=== PATIENT | female | born 1955 | race Caucasian/White ===

== ENCOUNTER 2020-08-18 07:47 | Day surgery (SDC) | payer BC, MEDICARE ==
[2020-08-18] MEDS: Polymyxin B/Trimethoprim 10 ML Bottle EYELF SCH ×3 (07:54→09:43)
[2020-08-18] MEDS: Brimonidine 0.2% Ophth Soln 5 ML Bottle EYELF SCH ×4 (07:57→09:43)
[2020-08-18] MEDS: Phenylephrine 2.5% Ophth Soln 2 ML Bot EYELF SCH ×6 (08:01→09:26)
[2020-08-18] MEDS: Tropicamide 1% Ophth Soln 15 ML Bottle EYELF SCH ×4 (08:06→08:50)
--- NOTE | 2020-08-18 08:07 | PCM.PREANE ---
Preanesthetic Assessment - Procedure Proposed Procedure: Left IOL - Anesthesia/Transfusion/Family Hx Anesthesia History: Prior Anesthesia Without Reaction Family History of Anesthesia Reaction: No - Review of Systems General: No Symptoms Pulmonary: No Symptoms Cardiovascular: No Symptoms Gastrointestinal: No Symptoms Neurological: No Symptoms Other: Reports: None - Physical Assessment NPO Status Date: 08/18/20 (greater than 8 hours) Height: 5 ft 5 in Weight: 81.647 kg ASA Class: 2 Mental Status: Alert & Oriented x3 Airway Class: Mallampati = 2 Dentition: Reports: Normal Dentition ROM/Head Extension: Full Lungs: Clear to Auscultation, Normal Respiratory Effort Cardiovascular: Regular Rate, Regular Rhythm - Allergies Allergies/Adverse Reactions: Allergies Allergy/AdvReac Type Severity Reaction Status Date / Time No Known Allergies Allergy Verified 08/17/20 09:31 - Acknowledgements Anesthesia Type Planned: MAC Pt an Appropriate Candidate for the Planned Anesthesia: Yes Alternatives and Risks of Anesthesia Discussed w Pt/Guardian: Yes Pt/Guardian Understands and Agrees with Anesthesia Plan: Yes PreAnesthesia Questionnaire - HOME MEDS Home Medications: Home Meds Cholecalciferol (Vitamin D3) [Vitamin D3] 5,000 unit PO DAILY 08/17/20 [History] Levothyroxine 75 mcg PO DAILY 08/17/20 [History] Omeprazole Magnesium [Prilosec Otc] 20 mg PO DAILY 08/17/20 [History] Rosuvastatin Calcium 5 mg PO DAILY 08/17/20 [History] - CURRENT (IN HOUSE) MEDS Current Meds: Current Medications Brimonidine Tartrate (Alphagan 0.2% Ophth Soln) 0 ml EYELF ASDIRECTED RYLEY Stop: 08/18/20 20:00 Last Admin: 08/18/20 07:57 Dose: 1 drop Documented by: Cefuroxime Sodium (Zinacef) 0 mg EYELF ASDIRECTED RYLEY Stop: 08/18/20 20:00 Lidocaine HCl (Xylocaine-Mpf 1%) 0 ml INJECT ASDIRECTED RYLEY Stop: 08/18/20 20:00 Phenylephrine HCl (Escobar-Synephrine 2.5% Ophth Soln) 0 ml EYELF ASDIRECTED RYLEY Stop: 08/18/20 20:00 Last Admin: 08/18/20 08:01 Dose: 1 drop Documented by: Pilocarpine HCl (Pilocar 4% Ophth Soln) 0 ml EYELF ASDIRECTED RYLEY Stop: 08/18/20 20:00 Polymyxin/Trimethoprim Sulfate (Polytrim Ophth Soln) 0 ml EYELF ASDIRECTED RYLEY Stop: 08/18/20 20:00 Last Admin: 08/18/20 07:54 Dose: 1 drop Documented by: Tetracaine HCl (Tetracaine 0.5% Steri-Unit Mine) 0 ml EYEBOTH ASDIRECTED RYLEY Stop: 08/18/20 20:00 Tropicamide (Mydriacyl 1% Ophth Soln) 0 ml EYELF ASDIRECTED RYLEY Stop: 08/18/20 20:00
[2020-08-18] MEDS: Tetracaine HCl/PF 0.5% 4 ML Bottle EYEBOTH SCH ×6 (08:30→09:32)
[2020-08-18] MEDS: Pilocarpine 4% Ophth Soln 15 ML Bot EYELF SCH ×2 (08:31→09:43)
[2020-08-18] MEDS: Cefuroxime 10 MG/ML SYRINGE EYELF SCH ×2 (08:31→09:42)
[2020-08-18] MEDS: Lidocaine 1% PF 2 ML SDV INJECT SCH ×2 (08:31→09:32)
--- NOTE | 2020-08-18 09:52 | PCM48HPAN ---
Post Anesthesia Note - EVALUATION WITHIN 48HRS OF ANESTHETIC Vital Signs in Normal Range: Yes Patient Participated in Evaluation: Yes Respiratory Function Stable: Yes Airway Patent: Yes Cardiovascular Function Stable: Yes Hydration Status Stable: Yes Pain Control Satisfactory: Yes Nausea and Vomiting Control Satisfactory: Yes Mental Status Recovered: Yes Vital Signs: Last Vital Signs Temp 36.2 C 08/18/20 07:45 Pulse 62 08/18/20 07:45 Resp 16 08/18/20 07:45 BP 130/68 08/18/20 07:45 Pulse Ox 97 08/18/20 07:45 - COMMENTS/OBSERVATIONS Free Text/Narrative:: Routine recovery. Patient may be discharged home.
== END 2020-08-18 09:52 | disposition home or self-care (01) ==
LOC: JD.SDS 07:47
PROVIDERS: ATTEND Ophthalmology
DX: H25.812 Combined forms of age-related cataract, left eye (principal); H52.31 Anisometropia; H35.413 Lattice degeneration of retina, bilateral; H35.40 Unspecified peripheral retinal degeneration; H16.103 Unspecified superficial keratitis, bilateral; H16.223 Keratoconjunctivitis sicca, not specified as Sjogren's, bilateral; H02.834 Dermatochalasis of left upper eyelid; H02.831 Dermatochalasis of right upper eyelid; E78.00 Pure hypercholesterolemia, unspecified; F17.210 Nicotine dependence, cigarettes, uncomplicated; Z96.1 Presence of intraocular lens; Z79.899 Other long term (current) drug therapy
CPT/HCPCS: 66984; C1780; J0697; J2001